=== PATIENT | female | born 1980 | race Two or more races ===

== ENCOUNTER 2024-02-05 12:06 | Emergency (ER) | payer OTHER ==
[~2024-02-05] VITALS: Ht 157.5 cm; Wt 59.0 kg
[2024-02-05] MEDS ORDERED: PAXLOVID 150-11 EAC1 PO (15:42)
== END 2024-02-05 15:52 | disposition home or self-care (01) ==
LOC: ER 12:08
DX: U07.1 COVID-19 (principal); R07.89 Other chest pain